=== PATIENT | male | born 1975 | race Caucasian/White ===

== ENCOUNTER 2022-07-05 23:31 | Observation (INO) | payer BC, OTHER ==
[2022-07-06 00:33] LABS: Urine Blood Negative (Negative); Urine Glucose Negative (Negative); Urine Protein Negative (Negative)
[2022-07-06 00:47] LABS: Absolute Lymphocytes (CBC) 3.4 K/uL (0.7-4.9); Hematocrit 37.8 % (39.6-49.0); Lymphocytes % 38.2 % (15.3-44.8); MCV 80.1 fL (80-100); MPV 8.2 fL (7.6-11.3); RBC Red Blood Cell Count 4.71 M/uL (4.33-5.43)
[2022-07-06 00:48] LABS: Protime INR 1.13
--- NOTE | 2022-07-06 00:48 | P.HP ---
Certification for Inpatient Patient admitted to: Observation With expected LOS: <2 Midnights Patient will require the following post-hospital care: None Practitioner: I am a practitioner with admitting privileges, knowledge of patient current condition, hospital course, and medical plan of care. Services: Services provided to patient in accordance with Admission requirements found in Title 42 Section 412.3 of the Code of Federal Regulations Patient History Date of Service: 07/06/22 Reason for admission: HTN urgency Allergies codeine Allergy (Unverified 08/08/16 22:48) Unknown - Past Medical/Surgical History -: HTN -: Vasectomy and reversal Psychosocial/ Personal History: Lives at home with his family - Social History Counseled patient to stop smoking for: less than 10 minutes Smoking therapy provided: No Place of Residence: Home Review of Systems 10-point ROS is otherwise unremarkable Neurological: Weakness (facial), As per HPI Physical Examination - Physical Exam General: Alert, In no apparent distress, Oriented x3 HEENT: Atraumatic, PERRLA, Mucous membr. moist/pink, EOMI, Sclerae nonicteric Neck: Supple, 2+ carotid pulse no bruit Respiratory: Clear to auscultation bilaterally, Normal air movement Cardiovascular: No edema, Regular rate/rhythm, Normal S1 S2 Capillary refill: <2 Seconds Gastrointestinal: Normal bowel sounds, No tenderness Musculoskeletal: No clubbing, No contractures, No tenderness Integumentary: No rashes Neurological: Normal speech, Normal strength at 5/5 x4 extr, Normal tone, Normal affect, Other (NIH-) Assessment and Plan - Problems (Diagnosis) (1) Silveira's palsy Onset Date: ~07/06/22 Current Visit: Yes Status: Acute (2) Hypertensive urgency Onset Date: ~07/06/22 Current Visit: Yes Status: Acute Discharge Plan: Home Plan to discharge in: 24 Hours - Advance Directives Does patient have a Living Will: No Does patient have a Durable POA for Healthcare: No - Code Status/Comfort Care Code Status Assessed: Yes (Full code) Critical Care: No
[2022-07-06] MEDS ORDERED: LABETALOL 20 MG/4ML SYRINGE IV ONE (00:55)
[2022-07-06 01:00] LABS: Potassium 3.5 mmol/L (3.5-5.1)
[2022-07-06 01:02] LABS: Barbiturates NEGATIVE (NEGATIVE); Benzodiazepines NEGATIVE (NEGATIVE); Cocaine NEGATIVE (NEGATIVE); METHAMPHETAM NEGATIVE (NEGATIVE); Methadone NEGATIVE (NEGATIVE); Opiates NEGATIVE (NEGATIVE); Phencyclidine NEGATIVE (NEGATIVE); THC Cannibis NEGATIVE (NEGATIVE)
--- NOTE | 2022-07-06 02:04 | ER ---
Nurse's Notes [facility] Name: Petros Gonzalez Age: 47 yrs Sex: Male : 1975 Arrival Date: 07/05/2022 Time: 23:32 Bed 25 Private MD: Diagnosis: Uncontrolled Hypertension;Silveira's palsy Presentation: 07/05 23:34 Chief complaint: Patient states: he noticed he was drooling a little while drinking bb about an hour ago then he was brushing his teeth and saw that he had a right sided facial droop. Coronavirus screen: At this time, the client does not indicate any symptoms associated with coronavirus-19. Ebola Screen: No symptoms or risks identified at this time. 23:34 Method Of Arrival: Ambulatory bb 23:42 An acute neurological deficit is present. The charge nurse has been notified. Initial bb Sepsis Screen: Does the patient meet any 2 criteria? No. Patient's initial sepsis screen is negative. Does the patient have a suspected source of infection? No. Patient's initial sepsis screen is negative. Risk Assessment: Do you want to hurt yourself or someone else? Patient reports no desire to harm self or others. Onset of symptoms was July 05, 2022. 23:42 Acuity: LIDIA 2 bb 07/06 00:43 Pre-hospital glucose is not applicable to this patient. vc1 Triage Assessment: 07/05 23:43 The onset of the patients symptoms was July 05, 2022 at 22:30. bb 07/06 00:54 General: Appears uncomfortable, Behavior is anxious. vc1 Stroke Activation: Symptom onset < 3 hours Physician: Stroke Attending; Name: ; Notified At: ; Arrived At: Physician: Chief Stroke Resident; Name: ; Notified At: ; Arrived At: Physician: Stroke Resident; Name: ; Notified At: ; Arrived At: Physician: ED Attending; Name: ; Notified At: ; Arrived At: Physician: ED Resident; Name: ; Notified At: ; Arrived At: Historical: - Allergies: 07/05 23:43 Codeine; bb - PMHx: 23:43 hypertension; bb - PSHx: 23:43 Vasectomy; vasectomy reversal; bb - Immunization history:: Pfizer x 2. - Social history:: Smoking status: unknown. Screenin/16 00:01 The patient has not been NPO before screening. The patient is alert, able to follow bb commands. The patient does not exhibit slurred or garbled speech The patient is not exhibiting difficulty speaking. The patient does not exhibit difficulty understanding words. The patient is able to swallow own secretions with no drooling or need for suction. Patient tolerated one teaspoon of water. No drooling, immediate coughing, gurgling, or clearing of the throat was noted. The patient tolerated 90mL of water. No drooling, immediate coughing, gurgling, or clearing of the throat was noted. The patient passed the bedside swallow screening. Oral medications may be given as ordered. Contact Physician for further diet orders. 00:42 Abuse screen: Denies threats or abuse. Nutritional screening: No deficits noted. vc1 Tuberculosis screening: No symptoms or risk factors identified. Fall Risk None identified. Assessment: 00:40 VAN Scoring: Arm Drift: Patients demonstrates NO arm weakness. Patient is VAN Negative. vc1 Patient has been NPO before screening. The patient is alert, and able to follow commands. The patient does not exhibit slurred or garbled speech. The patient is not exhibiting difficulty speaking. The patient does not exhibit difficulty understanding words. The patient is able to swallow own secretions with no drooling or need for suction. Patient tolerated one teaspoon of water. No drooling, immediate coughing, gurgling, or clearing of the throat was noted. The patient tolerated 90mL of water. No drooling, immediate coughing, gurgling, or clearing of the throat was noted. The patient passed the bedside swallow screening. Oral medications may be given as ordered. Contact Physician for further diet orders. Provider notified of bedside swallow screening results: Abel Calvillo MD. TNKase (Tenecteplase) Screening: Contraindications: Blood pressure is more than 185/110: Yes. Pain: Complains of pain in right occipital area Pain does not radiate. Quality of pain is described as pressure. Neuro: Level of Consciousness is awake, alert, obeys commands, Oriented to person, place, time, situation, Appropriate for age Reports headache in right occipital area, Describes as pressure over pain. Cardiovascular: Capillary refill < 3 seconds Patient's skin is warm and dry. Respiratory: Airway is patent Respiratory effort is even, unlabored, Respiratory pattern is regular, symmetrical. 01:00 Reassessment: No changes from previously documented assessment. Patient and/or family vc1 updated on plan of care and expected duration. Pain level reassessed. 02:00 Reassessment: No changes from previously documented assessment. Patient and/or family vc1 updated on plan of care and expected duration. Pain level reassessed. 03:00 Reassessment: No changes from previously documented assessment. Patient and/or family vc1 updated on plan of care and expected duration. Pain level reassessed. Patient states symptoms have not improved. 04:00 Reassessment: No changes from previously documented assessment. Patient and/or family vc1 updated on plan of care and expected duration. Pain level reassessed. Patient states symptoms have not improved. Vital Signs: 07/05 23:34 BP 219 / 128; Pulse 87; Resp 16 S; Temp 98(O); Pulse Ox 100% on R/A; Height 5 ft. 8 in. bb (172.72 cm) (R); Pain 0/10; 07/06 00:52 BP 177 / 100; vc1 00:54 BP 177 / 100; Pulse 80; Resp 14; Pulse Ox 98% on R/A; vc1 01:30 BP 190 / 115; Pulse 70; Resp 18; Pulse Ox 98% ; vc1 02:00 BP 173 / 107; Pulse 78; Resp 17; Pulse Ox 97% ; vc1 03:00 BP 173 / 97; Pulse 72; Resp 16; Pulse Ox 98% on R/A; vc1 04:00 BP 155 / 104; Pulse 68; Resp 17; Pulse Ox 96% on R/A; vc1 NIH Stroke Scale Scores: 07/05 23:50 NIHSS Score: 2 7 07/06 00:40 NIHSS Score: 2 vc1 ED Course: 07/05 23:32 Patient arrived in ED. ag3 23:42 Triage completed. bb 23:43 Arm band placed on Patient pt to CT. bb 23:48 Abel Calvillo MD is Attending Physician. 7 23:50 CT Stroke Brain w/o Contrast In Process Unspecified. EDMS 07/06 00:17 Stroke CXR 1 View In Process Unspecified. EDMS 00:39 Isadora Montana, RN is Primary Nurse. vc1 00:44 Glucose, Ancillary Testing Sent. vc1 00:44 UDS Sent. vc1 00:54 Patient has correct armband on for positive identification. Placed in gown. Bed in low vc1 position. Call light in reach. Side rails up X2. Adult w/ patient. Client placed on continuous cardiac and pulse oximetry monitoring. NIBP monitoring applied. 02:03 Prashant Blanchard MD is Hospitalizing Provider. [facility] 04:31 No provider procedures requiring assistance completed. Patient admitted, IV remains in vc1 place. 07:29 Primary Nurse role handed off by Isadora Montana RN 7 07:42 Edilson Rodriguez RN is Primary Nurse. jl7 Administered Medications: 00:50 Drug: Labetalol 10 mg Route: IV; Rate: per protocol; Infused Over: 2 mins; Site: left vc1 antecubital; 00:52 Follow up: BP 177 / 100; Response: No adverse reaction; Blood pressure is lowered; IV vc1 Status: Completed infusion; IV Intake: 2ml 02:15 Drug: predniSONE 60 mg Route: PO; vc1 04:37 Follow up: Response: No adverse reaction vc1 02:15 Drug: valACYclovir 1000 mg Route: PO; vc1 04:37 Follow up: Response: No adverse reaction vc1 Medication: 00:54 VIS not applicable for this client. vc1 Point of Care Testing: Blood Glucose: 00:43 Blood Glucose: 106 mg/dL; vc1 Ranges: Intake: 00:52 IV: 2ml; Total: 2ml. vc1 Outcome: 02:04 Decision to Hospitalize by Provider. [facility] 04:32 Admitted to ER Hold. Please see [facility] for further documentation. vc1 04:32 Condition: good 04:32 Instructed on the need for admit. 17:28 Patient left the ED. jl7 NIH Stroke Scale - NIH Stroke Score Date: 07/05/2022 Time: 23:50 Total Score = 2 1a. Level of Consciousness (LOC) - 0(Alert) 1b. Level of Consciousness (LOC) (Month \T\ Age) - 0(Both) 1c. LOC Commands (Open \T\ Closes Eyes/Methods Time Analyst) - 0(Both) 2. Best Gaze (Lateral Gaze Paresis) - 0(Normal) 3. Visual Field Loss - 0(No visual loss) 4. Facial Palsy - 2(Partial paralysis) 5a. Left Arm: Motor (10-second hold) - 0(No drift) 5b. Right Arm: Motor (10-second hold) - 0(No drift) 6a. Left Leg: Motor (5-second hold - always test supine) - 0(No drift) 6b. Right Leg: Motor (5-second hold - always test supine) - 0(No drift) 7. Limb Ataxia (finger/nose \T\ heel/brock - test with eyes open) - 0(Absent) 8. Sensory Loss (pinprick arms/legs/face) - 0(Normal) 9. Best Language: Aphasia (description/naming/reading) - 0(No aphasia) 10. Dysarthria (speech clarity - read or repeat words) - 0(Normal) 11. Extinction and Inattention (visual/tactile/auditory/spatial/personal) - 0(No abnormality) Initials: mh7 NIH Stroke Scale - NIH Stroke Score Date: 07/06/2022 Time: 00:40 Total Score = 2 1a. Level of Consciousness (LOC) - 0(Alert) 1b. Level of Consciousness (LOC) (Month \T\ Age) - 0(Both) 1c. LOC Commands (Open \T\ Closes Eyes/Methods Time Analyst) - 0(Both) 2. Best Gaze (Lateral Gaze Paresis) - 0(Normal) 3. Visual Field Loss - 0(No visual loss) 4. Facial Palsy - 2(Partial paralysis) 5a. Left Arm: Motor (10-second hold) - 0(No drift) 5b. Right Arm: Motor (10-second hold) - 0(No drift) 6a. Left Leg: Motor (5-second hold - always test supine) - 0(No drift) 6b. Right Leg: Motor (5-second hold - always test supine) - 0(No drift) 7. Limb Ataxia (finger/nose \T\ heel/brock - test with eyes open) - 0(Absent) 8. Sensory Loss (pinprick arms/legs/face) - 0(Normal) 9. Best Language: Aphasia (description/naming/reading) - 0(No aphasia) 10. Dysarthria (speech clarity - read or repeat words) - 0(Normal) 11. Extinction and Inattention (visual/tactile/auditory/spatial/personal) - 0(No abnormality) Initials: vc1 Signatures: Dispatcher [employer] EDMS Melissa Donato RN RN bb Edilson Rodriguez RN RN jl7 Yolanda Barbour3 Abel Calvillo MD MD mh7 Isadora Montana RN RN vc1 Corrections: (The following items were deleted from the chart) 07/05 23:44 23:43 PMHx: Hyperlipidemia; hanh schafer
--- NOTE | 2022-07-06 02:05 | EDPHYS ---
Physician Documentation [facility] Name: Petros Gonzalez Age: 47 yrs Sex: Male : 1975 Arrival Date: 07/05/2022 Time: 23:32 Bed 25 Private MD: ED Physician Abel Calvillo HPI: 07/05 23:50 This 47 yrs old Male presents to ER via Ambulatory with complaints of Facial Droop. mh7 23:50 The patient presents to the emergency department with weakness of the right side of the mh7 face, that is moderate. Onset: The symptoms/episode began/occurred today, 1 hour(s) ago. Context: occurred at home, occurred while the patient was sitting. Associated signs and symptoms: Pertinent positives: headache, Pertinent negatives: altered mental status, chills, dizziness, fever, nausea, neck stiffness, paresthesias, seizure, syncope, near-syncope, blurred vision, double vision, visual field changes, loss of vision, weakness. Severity of symptoms: At their worst the symptoms were moderate today, in the emergency department the symptoms are unchanged. Patient's baseline: Neuro: alert and fully oriented, Motor: no deficits, Ambulation: walks without assistance, Speech: normal. Current symptoms: paralysis or paresis, of the right facial, that is moderate. Historical: - Allergies: 23:43 Codeine; bb - PMHx: 23:43 hypertension; bb - PSHx: 23:43 Vasectomy; vasectomy reversal; bb - Immunization history:: Pfizer x 2. - Social history:: Smoking status: unknown. ROS: 23:50 Constitutional: Negative for fever, chills, and weight loss, Eyes: Negative for injury, mh7 pain, redness, and discharge, ENT: Negative for injury, pain, and discharge, Neck: Negative for injury, pain, and swelling, Cardiovascular: Negative for chest pain, palpitations, and edema, Respiratory: Negative for shortness of breath, cough, wheezing, and pleuritic chest pain, Abdomen/GI: Negative for abdominal pain, nausea, vomiting, diarrhea, and constipation, Back: Negative for injury and pain, : Negative for injury, bleeding, discharge, and swelling, MS/Extremity: Negative for injury and deformity, Skin: Negative for injury, rash, and discoloration, Psych: Negative for depression, anxiety, suicide ideation, homicidal ideation, and hallucinations, Allergy/Immunology: Negative for hives, rash, and allergies, Endocrine: Negative for neck swelling, polydipsia, polyuria, polyphagia, and marked weight changes, Hematologic/Lymphatic: Negative for swollen nodes, abnormal bleeding, and unusual bruising. Exam: 23:50 Constitutional: This is a well developed, well nourished patient who is awake, alert, mh7 and in no acute distress. Eyes: Pupils equal round and reactive to light, extra-ocular motions intact. Lids and lashes normal. Conjunctiva and sclera are non-icteric and not injected. Cornea within normal limits. Periorbital areas with no swelling, redness, or edema. ENT: Nares patent. No nasal discharge, no septal abnormalities noted. Tympanic membranes are normal and external auditory canals are clear. Oropharynx with no redness, swelling, or masses, exudates, or evidence of obstruction, uvula midline. Mucous membranes moist. Neck: Trachea midline, no thyromegaly or masses palpated, and no cervical lymphadenopathy. Supple, full range of motion without nuchal rigidity, or vertebral point tenderness. No Meningismus. Chest/axilla: Normal chest wall appearance and motion. Nontender with no deformity. No lesions are appreciated. Cardiovascular: Regular rate and rhythm with a normal S1 and S2. No gallops, murmurs, or rubs. Normal PMI, no JVD. No pulse deficits. Respiratory: Lungs have equal breath sounds bilaterally, clear to auscultation and percussion. No rales, rhonchi or wheezes noted. No increased work of breathing, no retractions or nasal flaring. Abdomen/GI: Soft, non-tender, with normal bowel sounds. No distension or tympany. No guarding or rebound. No evidence of tenderness throughout. Back: No spinal tenderness. No costovertebral tenderness. Full range of motion. Skin: Warm, dry with normal turgor. Normal color with no rashes, no lesions, and no evidence of cellulitis. MS/ Extremity: Pulses equal, no cyanosis. Neurovascular intact. Full, normal range of motion. Psych: Awake, alert, with orientation to person, place and time. Behavior, mood, and affect are within normal limits. 23:50 Neuro: Orientation: is normal, Mentation: is normal, Memory: is normal, Cranial nerves: Funduscopic exam reveals no obvious abnormalities, extraocular movements are intact, facial droop noted on right, with forehead involved. no gross hearing deficit,. Nystagmus is absent. Cerebellar function: is grossly normal, Motor: is normal, Sensation: is normal, Gait: is steady, at a normal pace, without difficulty, seizure activity, is not displayed by the patient, Abnormal movements: there are no abnormal movements. Vital Signs: 23:34 BP 219 / 128; Pulse 87; Resp 16 S; Temp 98(O); Pulse Ox 100% on R/A; Height 5 ft. 8 in. bb (172.72 cm) (R); Pain 0/10; 07/06 00:52 BP 177 / 100; vc1 00:54 BP 177 / 100; Pulse 80; Resp 14; Pulse Ox 98% on R/A; vc1 01:30 BP 190 / 115; Pulse 70; Resp 18; Pulse Ox 98% ; vc1 02:00 BP 173 / 107; Pulse 78; Resp 17; Pulse Ox 97% ; vc1 03:00 BP 173 / 97; Pulse 72; Resp 16; Pulse Ox 98% on R/A; vc1 04:00 BP 155 / 104; Pulse 68; Resp 17; Pulse Ox 96% on R/A; vc1 NIH Stroke Scale Scores: 07/05 23:50 NIHSS Score: 2 7 07/06 00:40 NIHSS Score: 2 vc1 MDM: 02:01 Data reviewed: vital signs, nurses notes, old medical records, lab test result(s), [facility] cardiac enzymes, CBC, electrolytes, urinalysis, urine drug screen, EKG, radiologic studies, CT scan, plain films. Data interpreted: Pulse oximetry: on room air is 98 %. Interpretation: normal. Counseling: I had a detailed discussion with the patient and/or guardian regarding: the historical points, exam findings, and any diagnostic results supporting the discharge/admit diagnosis, the presence of at least one elevated blood pressure reading (>120/80) during this emergency department visit, lab results, radiology results, the need for further work-up and treatment in the hospital. Response to treatment: the patient's symptoms have mildly improved after treatment. 02:04 Patient medically screened. [facility] 07/05 23:41 Order name: Basic Metabolic Panel; Complete Time: 01:05 bb 07/05 23:41 Order name: CBC with Diff; Complete Time: 01:05 bb 07/05 23:41 Order name: Protime (+inr); Complete Time: 00:51 bb 07/05 23:41 Order name: Ptt, Activated; Complete Time: 00:51 bb 07/06 00:04 Order name: Troponin High Sensitivity; Complete Time: 01:05 mh7 07/06 00:06 Order name: Glucose, Ancillary Testing; Complete Time: 00:15 EDMS 07/06 00:14 Order name: UDS; Complete Time: 01:05 la1 07/06 00:17 Order name: Glucose, Ancillary Testing EDMS 07/06 00:30 Order name: NT PRO-BNP; Complete Time: 01:05 EDMS 07/06 00:33 Order name: Urine Dipstick-Ancillary; Complete Time: 00:51 EDMS 07/06 02:18 Order name: CBC with Automated Diff EDMS 07/06 02:18 Order name: CBC with Automated Diff EDMS 07/06 02:18 Order name: CKMB Creatine Kinase MB EDMS 07/05 23:41 Order name: CT Stroke Brain w/o Contrast; Complete Time: 19:32 bb 07/05 23:41 Order name: Stroke CXR 1 View; Complete Time: 19:32 bb 07/06 02:18 Order name: CKMB Creatine Kinase MB; Complete Time: 19:32 EDMS 07/06 02:18 Order name: CKMB Creatine Kinase MB; Complete Time: 19:32 EDMS 07/06 02:18 Order name: CKMB Creatine Kinase MB EDMS 07/06 02:18 Order name: Comprehensive Metabolic Panel EDMS 07/06 02:18 Order name: Comprehensive Metabolic Panel EDMS 07/06 02:18 Order name: Creatine Phosphokinase EDMS 07/06 02:18 Order name: Creatine Phosphokinase; Complete Time: 19:32 EDMS 07/06 02:18 Order name: Creatine Phosphokinase; Complete Time: 19:32 EDMS 07/06 02:18 Order name: Creatine Phosphokinase EDMS 07/06 02:29 Order name: SARS RAPID mw2 07/06 03:44 Order name: SARS-COV-2 Antigen Rapid; Complete Time: 19:32 EDMS 07/06 12:07 Order name: MRI; Complete Time: 19:32 EDMS 07/05 23:41 Order name: EKG; Complete Time: 23:43 07/05 23:41 Order name: Accucheck; Complete Time: 00:56 07/05 23:41 Order name: Cardiac monitoring; Complete Time: 00:44 07/05 23:41 Order name: EKG - Nurse/Tech; Complete Time: 00:43 07/05 23:41 Order name: IV Saline Lock; Complete Time: 00:43 07/05 23:41 Order name: Labs collected and sent; Complete Time: 00:43 07/05 23:41 Order name: NPO; Complete Time: 00:43 07/05 23:41 Order name: O2 Per Protocol; Complete Time: 00:43 07/05 23:41 Order name: O2 Sat Monitoring; Complete Time: 00:43 07/05 23:41 Order name: Stroke Swallow Screen; Complete Time: 00:43 07/06 00:22 Order name: Urine Dipstick-Ancillary (obtain specimen); Complete Time: 00:44 [facility] 07/06 02:18 Order name: Heart Healthy [facility] 07/06 02:18 Order name: EKG Electrocardiogram [facility] 07/06 02:18 Order name: EKG Electrocardiogram EDLA Administered Medications: 00:50 Drug: Labetalol 10 mg Route: IV; Rate: per protocol; Infused Over: 2 mins; Site: left vc1 antecubital; 00:52 Follow up: BP 177 / 100; Response: No adverse reaction; Blood pressure is lowered; IV vc1 Status: Completed infusion; IV Intake: 2ml 02:15 Drug: predniSONE 60 mg Route: PO; vc1 04:37 Follow up: Response: No adverse reaction vc1 02:15 Drug: valACYclovir 1000 mg Route: PO; vc1 04:37 Follow up: Response: No adverse reaction vc1 Point of Care Testing: Blood Glucose: 00:43 Blood Glucose: 106 mg/dL; vc1 Ranges: Critical Glucose Levels:Adult <50 mg/dl or >400 mg/dl <40 mg/dl or >180 mg/dl Disposition Summary: 07/06/22 02:04 Hospitalization Ordered Hospitalization Status: Inpatient Admission [facility] Provider: Prashant Blanchard Rosario Condition: Stable [facility] Problem: new [facility] Symptoms: have improved [facility] Bed/Room Type: Standard [facility] Location: [facility] ER HOLD(07/06/22 02:26) Room Assignment: ERHOLD-(07/06/22 02:26) Diagnosis - Uncontrolled Hypertension 7 - Silveira's palsy [facility] Forms: - Medication Reconciliation Form [facility] - SBAR form [facility] NIH Stroke Scale - NIH Stroke Score Date: 07/05/2022 Time: 23:50 Total Score = 2 1a. Level of Consciousness (LOC) - 0(Alert) 1b. Level of Consciousness (LOC) (Month \T\ Age) - 0(Both) 1c. LOC Commands (Open \T\ Closes Eyes/Sound Effects Manager) - 0(Both) 2. Best Gaze (Lateral Gaze Paresis) - 0(Normal) 3. Visual Field Loss - 0(No visual loss) 4. Facial Palsy - 2(Partial paralysis) 5a. Left Arm: Motor (10-second hold) - 0(No drift) 5b. Right Arm: Motor (10-second hold) - 0(No drift) 6a. Left Leg: Motor (5-second hold - always test supine) - 0(No drift) 6b. Right Leg: Motor (5-second hold - always test supine) - 0(No drift) 7. Limb Ataxia (finger/nose \T\ heel/brock - test with eyes open) - 0(Absent) 8. Sensory Loss (pinprick arms/legs/face) - 0(Normal) 9. Best Language: Aphasia (description/naming/reading) - 0(No aphasia) 10. Dysarthria (speech clarity - read or repeat words) - 0(Normal) 11. Extinction and Inattention (visual/tactile/auditory/spatial/personal) - 0(No abnormality) Initials: [facility] NIH Stroke Scale - NIH Stroke Score Date: 07/06/2022 Time: 00:40 Total Score = 2 1a. Level of Consciousness (LOC) - 0(Alert) 1b. Level of Consciousness (LOC) (Month \T\ Age) - 0(Both) 1c. LOC Commands (Open \T\ Closes Eyes/Sound Effects Manager) - 0(Both) 2. Best Gaze (Lateral Gaze Paresis) - 0(Normal) 3. Visual Field Loss - 0(No visual loss) 4. Facial Palsy - 2(Partial paralysis) 5a. Left Arm: Motor (10-second hold) - 0(No drift) 5b. Right Arm: Motor (10-second hold) - 0(No drift) 6a. Left Leg: Motor (5-second hold - always test supine) - 0(No drift) 6b. Right Leg: Motor (5-second hold - always test supine) - 0(No drift) 7. Limb Ataxia (finger/nose \T\ heel/brock - test with eyes open) - 0(Absent) 8. Sensory Loss (pinprick arms/legs/face) - 0(Normal) 9. Best Language: Aphasia (description/naming/reading) - 0(No aphasia) 10. Dysarthria (speech clarity - read or repeat words) - 0(Normal) 11. Extinction and Inattention (visual/tactile/auditory/spatial/personal) - 0(No abnormality) Initials: vc1 Signatures: Dispatcher [employer] EDMS Destiny Kay RN RN mw Ballard, Brenda, RN RN bb Attema, Lee, [employer]-C [employer]-Cla1 Abel Calvillo MD MD 7 Isadora Montana RN RN vc1 Corrections: (The following items were deleted from the chart) 07/05 23:44 23:43 PMHx: Hyperlipidemia; hanh schafer 07/06 00:30 00:19 PROBNP+C.LAB.BRZ ordered. [facility] 02:04 Telemetry/MedSurg (Inpatient) [facility] : 02:04 [facility]
[2022-07-06] MEDS ORDERED: ONDANSETRON 4 MG/2 ML VIAL IV PRN (02:08)
[2022-07-06] MEDS ORDERED: ACETAMINOPHEN 500 MG TAB PO PRN (02:08)
[2022-07-06] MEDS ORDERED: MORPHINE 2 MG/ML SYR IV PRN (02:08)
[2022-07-06] MEDS ORDERED: ALBUTEROL 2.5 MG/3 ML NEB SOL NEB PRN ×2 (02:08→15:00)
[2022-07-06] MEDS ORDERED: HYDRALAZINE HCL 20 MG/ML VIAL IV PRN (02:11)
[2022-07-06] MEDS ORDERED: VALACYCLOVIR 500 MG TAB ONE ×3 (02:15→16:49)
[2022-07-06] MEDS ORDERED: predniSONE 20 MG TAB ONE (02:15)
[2022-07-06 03:30] LABS: Creatine Phosphokinase 98 U/L (39-308)
[2022-07-06 03:32] LABS: CKMB Creatine Kinase MB < 1.0 ng/mL (1.0-3.6)
[2022-07-06 03:44] LABS: SARS-CoV-2 Antigen Rapid Res Negative (Negative)
[2022-07-06 05:12] VITALS: BMI 33.4
[2022-07-06] MEDS ORDERED: dexAMETHasone 4 MG/ML VIAL IV ONE ×2 (07:54→12:00)
[2022-07-06] MEDS: IPRATROPIUM BROM 0.5MG/2.5ML NEB SCH ×2 (08:00→14:00)
--- NOTE | 2022-07-06 08:12 | EKG ---
Test Date: 2022-07-06 Test Time: 00:33:59 [employer]riving School Instructor: RICCI MEASUREMENT RESULTS: Intervals: Rate: 73 TN: 172 QRSD: 110 QT: 376 QTc: 414 [place]: P: 42 TN: 172 QRS: 12 T: 35 INTERPRETIVE STATEMENTS: Normal sinus rhythm Voltage criteria for left ventricular hypertrophy Nonspecific T wave abnormality Abnormal ECG No previous ECG available for comparison Electronically Signed On 07-06-22 08:10:58 CDT by Vargas Nunez
[2022-07-06] MEDS ORDERED: LOSARTAN POTASSIUM 50 MG TABLET ONE (08:36)
[2022-07-06] MEDS ORDERED: dexAMETHasone 4 MG/ML VIAL ONE ×2 (08:37→11:33)
[2022-07-06] MEDS: VALACYCLOVIR 500 MG TAB PO SCH ×2 (09:00→14:00)
[2022-07-06] MEDS ORDERED: LOSARTAN POTASSIUM 50 MG TABLET PO SCH (09:00)
[2022-07-06] MEDS ORDERED: AMLODIPINE 5 MG TAB PO SCH (09:00)
--- NOTE | 2022-07-06 11:09 | RAD REPORT ---
EXAM DESCRIPTION: CT - Ct Stroke Brain Wo Cont - 07/06/2022 6:42 am ADDENDUM #1 ADDENDUM: THIS REPORT CONTAINS FINDINGS THAT MAY BE CRITICAL TO PATIENT'S CARE: The findings were verbally discussed via telephone conference with Abel Calvillo by Dr. Ayala on 07/06/2022 12:12 AM CDT. The results were acknowledged and understood. Electronically signed by: Jose M Ayala DO 07/06/2022 12:13 AM CDT End of Addendum EXAM DESCRIPTION: Ct Stroke Brain Wo Cont CLINICAL HISTORY: 47 years Male Neuro deficit, acute, stroke suspected COMPARISON: None TECHNIQUE: Contiguous axial images of the brain were obtained without the administration of intraven ous contrast.This exam was performed according to our departmental dose-optimization program which in cludes use of Automated Exposure Control, adjustment of the mA and/or kV according to patient size an d/or use of iterative reconstruction technique. DLP: 875 mGy*cm FINDINGS: Brain: No acute intracranial hemorrhage. No extra-axial collection. No mass effect or haroldo iation. Ventricles: Within normal limits in size. Globes and orbits: No acute abnormality. Bones: No acute osseous finding Paranasal sinuses: Paranasal sinuses are clear. Mastoid air cells: Well pneumatized. Soft tissues: Within normal limits IMPRESSION: No acute intracranial abnormality. Electronically signed by: Jose M Ayala DO 07/06/2022 12:06 AM CDT Due to temporary technical issues with the PACS/Fluency reporting system, reports are being signed by the in house radiologists without review as a courtesy to insure prompt reporting. The interpreting radiologist is fully responsible for the content of the report.
[2022-07-06] MEDS ORDERED: ACETAMINOPHEN 325 MG TABLET ONE (11:33)
--- NOTE | 2022-07-06 11:38 | RAD REPORT ---
EXAM DESCRIPTION: RAD - Chest Single View - 07/06/2022 12:08 am CLINICAL HISTORY: 7 years Male, suspect stroke COMPARISON: None FINDINGS: No focal lung consolidation. No pleural effusion. No pneumothorax. Cardiomediastinal silhouette is enlarged. No acute osseous abnormality. IMPRESSION: No acute cardiopulmonary disease. Electronically signed by: Jose M Ayala DO 07/06/2022 12:29 AM CDT Due to temporary technical issues with the PACS/Fluency reporting system, reports are being signed by the in house radiologists without review as a courtesy to insure prompt reporting. The interpreting radiologist is fully responsible for the content of the report.
--- NOTE | 2022-07-06 12:06 | RAD REPORT ---
EXAM DESCRIPTION: MRI - Brain Wo Cont - 07/06/2022 10:35 am CLINICAL HISTORY: CVA vs Silveira's Palsy COMPARISON: No comparisons TECHNIQUE: Sagittal T1-weighted images were obtained along with axial PD, heavily T2-weighted and T2 -FLAIR images. Axial DWI and ADC mapping sequences were also obtained along with coronal heavily T2-w eighted images. FINDINGS: Diffusion imaging shows no acute infarction change. No hemorrhage, mass or edema. No midli ne shift present. No significant atrophy changes are present in this patient. The ventricles are norm al. No chronic ischemic changes in the cerebral white matter. No extra-axial fluid collections. [place]- matter/white matter junction is preserved. Signal voids are seen as a normal finding in the major int racranial vessels. No globe or orbital content abnormality. No sella or supra sella abnormality. No tonsillar ectopia. Mastoid air cells and paranasal sinuses are clear. IMPRESSION: Negative non-contrast MRI of the Brain CVA or other significant intracranial finding.
[2022-07-06] MEDS ORDERED: HYDRALAZINE HCL 20 MG/ML VIAL ONE (12:32)
[2022-07-06 12:41] LABS: Creatine Phosphokinase 106 U/L (39-308)
[2022-07-06 12:42] LABS: CKMB Creatine Kinase MB < 1.0 ng/mL (1.0-3.6)
--- NOTE | 2022-07-06 12:52 | P.SSS ---
Patient History Date of Service: 07/06/22 Reason for admission: BP HIGH AND R SIDE FACIAL WEAKNESS History of Present Illness: IS HTN PATIENT WHO HAS NOT BEEN TO OFFICE FOR TWO YEARS. HE COMES TO ER WITH BP AT 200 SYSTOLIC AND R SIDE FACIAL WEAKNESS. 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 MRI BRAIN IS NEGATIVE. HE HAS NO OTHER WEAKNESSES. Allergies codeine Allergy (Mild, Verified 07/06/22 07:51) Unknown Home medications list reviewed: Yes Home Medications: Labetalol HCl 100 mg PO BID #60 07/06/22 Losartan/Hydrochlorothiazide [Losartan-Hctz 100-12.5 mg Tab] 1 each PO DAILY #90 07/06/22 Valacyclovir [Valtrex*] 1,000 mg PO TID #15 tab 07/06/22 dexAMETHasone [Dexamethasone] 4 mg PO BID #20 07/06/22 - Past Medical/Surgical History Has patient received pneumonia vaccine in the past: No Diabetic: No -: HTN -: Vasectomy and reversal - Social History Smoking Status: Unknown if ever smoked Alcohol use: Yes CD- Drugs: No Caffeine use: Yes Place of Residence: Home Review of Systems 10-point ROS is otherwise unremarkable General: Weakness Physical Examination - Vital Signs Temperature: 98.2 F Blood Pressure: 160/102 Pulse: 68 Respirations: 15 Pulse Ox (%): 97 - Physical Exam General: Alert, In no apparent distress HEENT: Atraumatic, PERRLA, Mucous membr. moist/pink, EOMI, Sclerae nonicteric Neck: Supple, 2+ carotid pulse no bruit, No LAD, Without JVD or thyroid abnormality Respiratory: Clear to auscultation bilaterally, Normal air movement Cardiovascular: Regular rate/rhythm, Normal S1 S2 Gastrointestinal: Normal bowel sounds, No tenderness Musculoskeletal: No tenderness Integumentary: No rashes Neurological: Normal gait, Normal speech, Abnormal cranial nerve function (R FACIAL WEAKNESS, INFRANUCLEAR.) Lymphatics: No axilla or inguinal lymphadenopathy - Studies Laboratory Data (last 24 hrs) 07/06/22 00:20: PT 12.5, INR 1.13, APTT 34.7 07/06/22 00:20: WBC 8.80, Hgb 13.2 L, Hct 37.8 L, Plt Count 238 07/06/22 00:20: Sodium 142, Potassium 3.5, BUN 10, Creatinine 1.06, Glucose 119 H - Diagnosis (Problem(s)) (1) Watson's palsy Onset Date: ~07/06/22 Current Visit: Yes Status: Acute Plan: STEROIDS ORALLY AND VALTREX MAY OR MAY NOT FULLY RECOVER. (2) Hypertensive urgency Onset Date: ~07/06/22 Current Visit: Yes Status: Acute Plan: MEDS NON COMPLIANCE. RESUME LABETOLOL AND LOSARTAN HCT. HE PROMISES TO COME TO OFFICE. - Disposition Disposition: ROUTINE DISCHARGE Condition: FAIR
[2022-07-06] MEDS ORDERED: cloNIDine HCL 0.1 MG TAB PO SCH (14:00)
[2022-07-06 17:51] VITALS: TEMP 98
[2022-07-06 18:05] VITALS: BP 155/104; O2SAT 96
[2022-07-07] MEDS ORDERED: predniSONE 20 MG TAB PO SCH (00:01)
== END 2022-07-06 14:45 | disposition home or self-care (01) ==
LOC: ER 23:31 → INTOOBSV 07-06 02:19 → ERHOLD 07-06 02:19
PROVIDERS: ADMIT Internal Medicine; ATTEND Internal Medicine
DX: G51.0 Bell's palsy (principal); I16.0 Hypertensive urgency; Z91.14 Patient's other noncompliance with medication regimen; Z88.5 Allergy status to narcotic agent; Z20.822 Contact with and (suspected) exposure to COVID-19
CPT/HCPCS: 93005; 85025; 80048; 36415; 82550 ×2; 85610; 82947; 85730; 81003; 84484; 82553 ×2; 83880; 80307; 70450; 71045; 70551; 94760 ×2; 96374; 99285; 87811; J0360; J1100 ×2; J7512

== ENCOUNTER 2023-09-07 06:46 | Day surgery (SDC) | payer BC, OTHER ==
--- NOTE | 2023-09-05 15:37 | RAD REPORT ---
EXAM DESCRIPTION: RAD - Chest Pa And Lat (2 Views) - 09/05/2023 3:31 pm CLINICAL HISTORY: Pre op pending cholecystectomy Chest pain. COMPARISON: Chest Single View dated 07/06/2022; Chest Single View dated 08/08/2016 FINDINGS: The lungs are clear. The heart is normal in size. No displaced fractures. IMPRESSION: No acute or concerning finding suspected.
[2023-09-05 15:40] LABS: Absolute Lymphocytes (CBC) 2.5 K/uL (0.7-4.9); Hematocrit 36.5 % (39.6-49.0); Lymphocytes % 31.4 % (15.3-44.8); MCV 82.2 fL (80-100); MPV 8.1 fL (7.6-11.3); Platelets 243 thou/uL (152-406); RBC Red Blood Cell Count 4.44 M/uL (4.33-5.43)
[2023-09-05 16:00] LABS: Albumin 3.4 g/dL (3.4-5.0); Bilirubin Direct 0.2 mg/dL (0-0.2); Bilirubin Total 1.2 mg/dL (0.2-1.0); Potassium 3.4 mEq/L (3.5-5.1); Protein, Total 7.3 g/dL (6.4-8.2)
--- NOTE | 2023-09-06 11:21 | EKG ---
Test Date: 2023-09-05 Test Time: 15:15:19 Machinery Repair Maintenance Supervisor: ROSE MEASUREMENT RESULTS: Intervals: Rate: 64 VT: 164 QRSD: 102 QT: 384 QTc: 396 [place]: P: 30 VT: 164 QRS: 41 T: 55 INTERPRETIVE STATEMENTS: Normal sinus rhythm with sinus arrhythmia Normal ECG Compared to ECG 07/06/2022 00:33:59 Left ventricular hypertrophy no longer present T-wave abnormality no longer present Electronically Signed On 09-06-23 11:18:42 CDT by Joseph Reyes
[2023-09-07] MEDS ORDERED: Ringers Lactate 1,000 ML IV ONE (07:18)
[2023-09-07 07:46] VITALS: TEMP 97.5
[2023-09-07] MEDS: CEFOXITIN SODIUM 1 GM/VIAL ONE ×2 (07:49→08:34)
[2023-09-07] MEDS ORDERED: FENTANYL CITR 100 MCG/2 ML ONE (08:21)
[2023-09-07] MEDS ORDERED: ROCURONIUM 50 MG/5 ML VIAL IV ONE (08:21)
[2023-09-07] MEDS ORDERED: propofoL 200 MG/20 ML VIAL IV ONE (08:21)
[2023-09-07] MEDS ORDERED: LIDOCAINE 2% MPF 5 ML VIAL ONE (08:22)
[2023-09-07] MEDS ORDERED: ONDANSETRON 4 MG/2 ML VIAL ONE (08:22)
[2023-09-07] MEDS ORDERED: MIDAZOLAM HCL 2 MG/2 ML INJ ONE (08:22)
[2023-09-07] MEDS ORDERED: dexAMETHasone 10 MG/ML VIAL ONE (08:22)
[2023-09-07] MEDS ORDERED: KETOROLAC 30 MG/ML INJ ONE (08:22)
[2023-09-07] MEDS ORDERED: SUCCINYLCHOLINE 20 MG/ML (10 ML) IV ONE (08:28)
[2023-09-07] MEDS ORDERED: NS 0.9% VIAL 10 ML ONE (09:22)
[2023-09-07] MEDS ORDERED: Phenylephrine HCl 10 MG/ML 1 ML VIAL ONE (09:22)
[2023-09-07] MEDS ORDERED: EPHEDRINE SULF 50 MG/ML VIAL ONE (09:22)
[2023-09-07] MEDS ORDERED: SUGAMMADEX SODIUM 200 MG/2 ML VIAL IV ONE (09:36)
--- NOTE | 2023-09-07 09:39 | P.BOP ---
Preoperative diagnosis: acute cholecystitis, symptomatic cholelithiasis Postoperative diagnosis: same Primary procedure: Laparoscopic cholecystectomy Estimated blood loss: <10cc Specimen: gb Findings: as above Anesthesia: General Complications: None Transferred to: Recovery Room Condition: Good
[2023-09-07] MEDS ORDERED: TRAMADOL 37.5mg/APAP 325mg PER TAB ONE (10:46)
[2023-09-07 11:09] VITALS: BP 125/79; O2SAT 96
== END 2023-09-07 11:00 | disposition home or self-care (01) ==
LOC: PRE 06:46 → OR 11:00
PROVIDERS: ATTEND Surgery
PROC: 0FT44ZZ Resection of Gallbladder, Percutaneous Endoscopic Approach (ICD-10-PCS; principal; 2023-09-07 08:15)
DX: K80.10 Calculus of gallbladder with chronic cholecystitis without obstruction (principal); I10 Essential (primary) hypertension; E78.00 Pure hypercholesterolemia, unspecified; A15.9 Respiratory tuberculosis unspecified
CPT/HCPCS: 93005; 85025; 80048; 36415; 80076; 88304; 83690; 71046; 47562; A4216; J2704; J2371; J2001; J2250; J3010; J1100; J0694; J2405; J7120

== ENCOUNTER 2024-10-15 20:41 | Emergency (ER) | payer BC ==
--- NOTE | 2024-10-15 20:55 | EDPHYS ---
Physician Documentation [facility] Name: Petros Gonzalez Age: 49 yrs Sex: Male : 1975 Arrival Date: 10/15/2024 Time: 20:41 Bed 6 Private MD: ED Physician Twan Cassidy HPI: 10/15 20:58 This 49 yrs old Male presents to ER via Unassigned with complaints of S/S of Possible rt Stroke. 20:58 Patient with previous history of Silveira's palsy presents to the ED with a left-sided rt facial droop. Patient states that the droop does involve the eyebrow on the left side. Denies any numbness, other weakness, dizziness. Denies other acute complaints, symptoms are moderate in severity, no other aggravating or alleviating factors.. Historical: - Allergies: 20:43 Codeine; ha1 - PMHx: 20:43 Hypertension; Hypercholesterolemia; BELLS PALSY; ha1 - PSHx: 20:43 Vasectomy; vasectomy reversal; ha1 - Immunization history:: Adult Immunizations up to date. - Infectious Disease History:: Denies. - Family history:: not pertinent. - Social history:: Smoking status: Patient denies any tobacco usage or history of. ROS: 20:58 Constitutional: Negative for fever, chills, and weight loss, Cardiovascular: Negative rt for chest pain, palpitations, and edema, Respiratory: Negative for shortness of breath, cough, wheezing, and pleuritic chest pain, Abdomen/GI: Negative for abdominal pain, nausea, vomiting, diarrhea, and constipation, Skin: Negative for injury, rash, and discoloration, 20:58 Neuro: Positive for Positive for facial droop, negative for other weakness, any numbness, Exam: 20:58 Constitutional: This is a well developed, well nourished patient who is awake, alert, rt and in no acute distress. Head/Face: Normocephalic, atraumatic. Chest/axilla: Normal chest wall appearance and motion. Nontender with no deformity. No lesions are appreciated. Cardiovascular: Regular rate and rhythm with a normal S1 and S2. No gallops, murmurs, or rubs. Normal PMI, no JVD. No pulse deficits. Respiratory: Lungs have equal breath sounds bilaterally, clear to auscultation and percussion. No rales, rhonchi or wheezes noted. No increased work of breathing, no retractions or nasal flaring. Abdomen/GI: Soft, non-tender, with normal bowel sounds. No distension or tympany. No guarding or rebound. No evidence of tenderness throughout. 20:58 Eyes: Extraocular muscles intact, no visual field deficits. 20:58 Neuro: Left-sided facial droop involving the upper face, cranial nerves otherwise intact, strength and sensation intact in upper and lower extremities, speech normal, no ataxia on [id number], Vital Signs: 20:43 BP 158 / 105; Pulse 98; Resp 17 S; Temp 98.1; Pulse Ox 98% on R/A; Weight 104.33 kg; ha1 Height 5 ft. 8 in. ; 20:43 Body Mass Index 34.97 (104.33 kg, 172.72 cm) ha1 NIH Stroke Scale Scores: 20:58 NIHSS Score: 1 cp4 MDM: 20:52 Medical Screening Exam initiated rt 20:58 Differential diagnosis: Silveira's palsy, CVA. Data reviewed: vital signs, nurses notes. I rt considered the following discharge prescriptions or medication management in the emergency department Medications were administered in the Emergency Department. See MAR. Test considered but Not performed: Other Details Patient has a classic presentation of Silveira's palsy as the facial droop involves the upper third of the face and he has no other neurologic symptoms. He does have a previous history of Silveira's palsy. For this reason, clinically I do not believe that the patient has a central process such as CVA and does not require labs, neuroimaging.. Counseling: I had a detailed discussion with the patient and/or guardian regarding the historical points, exam findings, and any diagnostic results supporting the discharge/admit diagnosis, the presence of at least one elevated blood pressure reading (>120/80) during this emergency department visit, to return to the emergency department if symptoms worsen or persist or if there are any questions or concerns that arise at home. Administered Medications: 21:15 Drug: valACYclovir PO 1000 mg PO once Route: PO; cp4 21:17 Follow up: Response: No adverse reaction cp4 21:15 Drug: predniSONE PO 40 mg PO once Route: PO; cp4 21:16 Follow up: Response: No adverse reaction cp4 Disposition Summary: 10/15/24 20:55 Discharge Ordered Notes: Location: Home rt Problem: new rt Symptoms: are unchanged rt Condition: Stable rt Diagnosis - Silveira's palsy rt Followup: rt - With: Private Physician - When: 2 - 3 days - Reason: Discharge Instructions: - Discharge Summary Sheet rt - Silveira's Palsy, Adult rt Forms: - Medication Reconciliation Form rt - Antibiotic Education rt - Prescription Opioid Use rt - Patient Portal Instructions rt - Leadership Thank You Letter rt Prescriptions: - valacyclovir 1 gram Oral tablet - take 1 tablet ORAL route 3 times per day for 7 days; 21 tablet; Refills: 0, rt Product Selection Permitted - Prednisone 20 mg Oral tablet - take 2 tablets ORAL route once daily for 4 days; 8 tablet; Refills: 0, Product rt Selection Permitted NIH Stroke Scale - NIH Stroke Score Date: 10/15/2024 Time: 20:58 Total Score = 1 10. Dysarthria (speech clarity - read or repeat words) - 0(Normal) 11. Extinction and Inattention (visual/tactile/auditory/spatial/personal) - 0(No abnormality) 1a. Level of Consciousness (LOC) - 0(Alert) 1b. Level of Consciousness (LOC) (Month \T\ Age) - 0(Both) 1c. LOC Commands (Open \T\ Closes Eyes/Chronometer Repairer) - 0(Both) 2. Best Gaze (Lateral Gaze Paresis) - 0(Normal) 3. Visual Field Loss - 0(No visual loss) 4. Facial Palsy - 1(Minor Paralysis) 5a. Left Arm: Motor (10-second hold) - 0(No drift) 5b. Right Arm: Motor (10-second hold) - 0(No drift) 6a. Left Leg: Motor (5-second hold - always test supine) - 0(No drift) 6b. Right Leg: Motor (5-second hold - always test supine) - 0(No drift) 7. Limb Ataxia (finger/nose \T\ heel/brock - test with eyes open) - 0(Absent) 8. Sensory Loss (pinprick arms/legs/face) - 0(Normal) 9. Best Language: Aphasia (description/naming/reading) - 0(No aphasia) Initials: cp4 Signatures: Shannon Haro RN RN ha1 Twan Cassidy MD MD rt Caity Petersen cp4
[2024-10-15] MEDS ORDERED: VALACYCLOVIR 500 MG TAB ONE (21:03)
[2024-10-15] MEDS ORDERED: predniSONE 20 MG TAB ONE (21:11)
--- NOTE | 2024-10-15 21:17 | ER ---
Nurse's Notes [facility] Name: Petros Gonzalez Age: 49 yrs Sex: Male : 1975 Arrival Date: 10/15/2024 Time: 20:41 Bed 6 Private MD: Diagnosis: Silveira's palsy Presentation: 10/15 20:43 Chief complaint: Patient states: NOTICED LEFT SIDE OF FACE DROOP 30 MINUTES AGO, NO ha1 DIZZINESS, NO NUMBNESS, NO BLURRED VISION. I THINK I AM HAVING ANOTHER EPISODE OF BELLS PALSY. 20:43 Coronavirus screen: Vaccine status: At this time, the client does not indicate any ha1 symptoms associated with coronavirus-19. Ebola Screen: No symptoms or risks identified at this time. No acute neurological deficit is noted. Initial Sepsis Screen: Does the patient meet any 2 criteria? No. Patient's initial sepsis screen is negative. Does the patient have a suspected source of infection? No. Patient's initial sepsis screen is negative. Risk Assessment: Do you want to hurt yourself or someone else? Patient reports no desire to harm self or others. Onset of symptoms was October 15, 2024. 20:43 Method Of Arrival: Wheelchair ha1 20:43 Acuity: LIDIA 3 ha1 Triage Assessment: 20:43 The onset of the patients symptoms was October 15, 2024 at 20:12. General: Appears ha1 comfortable, Behavior is calm, cooperative. Pain: Denies pain. Neuro: Level of Consciousness is awake, alert, obeys commands, Oriented to person, place, time, situation, Icu Specialist are equal bilaterally Moves all extremities. Full function Gait is steady, Speech is normal, Facial droop on left, Pupils are PERRLA, Reports FACIAL DROOP ON THE LEFT SIDE OF FACE . Denies weakness blurred vision dizziness, difficulty swallowing. Cardiovascular: Capillary refill < 3 seconds Patient's skin is warm and dry. Respiratory: Airway is patent Respiratory effort is even, unlabored, Respiratory pattern is regular, symmetrical. GI: No signs and/or symptoms were reported involving the gastrointestinal system. Abdomen is round non-distended. Derm: Skin is pink, warm \T\ dry. Historical: - Allergies: 20:43 Codeine; ha1 - PMHx: 20:43 Hypertension; Hypercholesterolemia; BELLS PALSY; ha1 - PSHx: 20:43 Vasectomy; vasectomy reversal; ha1 - Immunization history:: Adult Immunizations up to date. - Infectious Disease History:: Denies. - Family history:: not pertinent. - Social history:: Smoking status: Patient denies any tobacco usage or history of. Screenin:58 [facility] ED Fall Risk Assessment (Adult) History of falling in the last 3 months, cp4 including since admission No falls in past 3 months (0 pts) Confusion or Disorientation No (0 pts) Intoxicated or Sedated No (0 pts) Impaired Gait No (0 pts) Mobility Assist Device Used No (0 pt) Altered Elimination No (0 pt) Score/Fall Risk Level 0 - 2 = Low Risk Oriented to surroundings, Maintained a safe environment, Assessed \T\ reinforced patient's understanding of fall precautions, Hourly rounding (assess needs \T\ fall precautionary measures) done. Abuse screen: Denies threats or abuse. Nutritional screening: No deficits noted. Tuberculosis screening: No symptoms or risk factors identified. Assessment: 20:58 VAN Scoring: Arm Drift: Patients demonstrates NO arm weakness. Patient is VAN Negative. cp4 [place] Swallow Protocol Exclusion Criteria: Exclusion Criteria Result: Proceed Brief Cognitive Screen What is your name? Normal, Where are you right now? Normal, What year is it? Normal. Oral Mechanism Examination Facial Symmetry: Normal, Motion: Normal, Lip Closure: Normal, Oral Mechanism Result: Normal. 3 oz Water Swallow Challenge: Pt able to drink all water without stopping, coughing, choking or throat clearing: Yes Result: PASS MD Notified: Twan Cassidy MD. TNKase (Tenecteplase) Screening: Not Applicable. General: Appears in no apparent distress. comfortable, Behavior is calm, cooperative, appropriate for age. Pain: Denies pain. Neuro: Level of Consciousness is awake, alert, obeys commands, Oriented to person, place, time, situation. Cardiovascular: Patient's skin is warm and dry. Respiratory: Airway is patent Respiratory effort is even, unlabored. GI: No signs and/or symptoms were reported involving the gastrointestinal system. : No signs and/or symptoms were reported regarding the genitourinary system. EENT: No signs and/or symptoms were reported regarding the EENT system. Derm: No signs and/or symptoms reported regarding the dermatologic system. Musculoskeletal: No signs and/or symptoms reported regarding the musculoskeletal system. Vital Signs: 20:43 BP 158 / 105; Pulse 98; Resp 17 S; Temp 98.1; Pulse Ox 98% on R/A; Weight 104.33 kg; ha1 Height 5 ft. 8 in. ; 20:43 Body Mass Index 34.97 (104.33 kg, 172.72 cm) ha1 NIH Stroke Scale Scores: 20:58 NIHSS Score: 1 cp4 ED Course: 20:43 Patient arrived in ED. jj6 20:43 Twan Cassidy MD is Attending Physician. sb4 20:58 Caity Petersen is Primary Nurse. cp4 20:58 Bed in low position. Call light in reach. Side rails up X 1. Provided Education on: cp4 silveira's palsy. 20:58 No provider procedures requiring assistance completed. Patient did not have IV access cp4 during this emergency room visit. 20:59 Triage completed. ha1 Administered Medications: 21:15 Drug: valACYclovir PO 1000 mg PO once Route: PO; cp4 21:17 Follow up: Response: No adverse reaction cp4 21:15 Drug: predniSONE PO 40 mg PO once Route: PO; cp4 21:16 Follow up: Response: No adverse reaction cp4 Medication: 20:58 VIS not applicable for this client. cp4 Outcome: 20:55 Discharge ordered by . rt 21:15 Discharged to home ambulatory, cp4 21:15 Condition: stable 21:15 Discharge instructions given to patient, family, Instructed on discharge instructions, follow up and referral plans. medication usage, Demonstrated understanding of instructions, follow-up care, medications, Prescriptions given X 2, 21:17 Patient left the ED. cp4 NIH Stroke Scale - NIH Stroke Score Date: 10/15/2024 Time: 20:58 Total Score = 1 10. Dysarthria (speech clarity - read or repeat words) - 0(Normal) 11. Extinction and Inattention (visual/tactile/auditory/spatial/personal) - 0(No abnormality) 1a. Level of Consciousness (LOC) - 0(Alert) 1b. Level of Consciousness (LOC) (Month \T\ Age) - 0(Both) 1c. LOC Commands (Open \T\ Closes Eyes/Floor Polisher) - 0(Both) 2. Best Gaze (Lateral Gaze Paresis) - 0(Normal) 3. Visual Field Loss - 0(No visual loss) 4. Facial Palsy - 1(Minor Paralysis) 5a. Left Arm: Motor (10-second hold) - 0(No drift) 5b. Right Arm: Motor (10-second hold) - 0(No drift) 6a. Left Leg: Motor (5-second hold - always test supine) - 0(No drift) 6b. Right Leg: Motor (5-second hold - always test supine) - 0(No drift) 7. Limb Ataxia (finger/nose \T\ heel/brock - test with eyes open) - 0(Absent) 8. Sensory Loss (pinprick arms/legs/face) - 0(Normal) 9. Best Language: Aphasia (description/naming/reading) - 0(No aphasia) Initials: cp4 Signatures: Scarlett Caroj6 Shannon Haro, RODO RN ha1 Alondra Harrington, PADerrickC PA-C sb4 Twan Cassidy MD MD rt Potter, Christina cp4
[2024-10-16 03:28] VITALS: BP 158/105; TEMP 98.1; O2SAT 98
== END 2024-10-15 21:17 | disposition home or self-care (01) ==
LOC: ER 20:41
DX: G51.0 Bell's palsy (principal); I10 Essential (primary) hypertension; E78.00 Pure hypercholesterolemia, unspecified; Z88.5 Allergy status to narcotic agent
CPT/HCPCS: 99284; J7512